=== PATIENT | female | born 1955 | race Caucasian/White ===

== ENCOUNTER 2016-09-27 09:53 | Emergency (ER) | payer OTHER ==
--- NOTE | 2016-09-27 10:27 | ERPHSYRPT ---
- History of Present Illness Time Seen by Provider: 09/27/16 10:10 Source: patient Exam Limitations: clinical condition Patient Subjective Stated Complaint: rt foot pain since saturday Triage Nursing Assessment: c/o constant rt foot pain since saturday. denies injury. pain to inner 'arch area' with localized sweling noted. pedal pulse present. ice with no relief Physician History: PATIENT COMPLAINS OF RIGHT MID FOOT PAIN WITH SWELLING ON INNER ASPECT OF FOOT FOR 4 DAYS. HAS MARKED PAIN UPON WEIGHT BEARING. DENIES TRAUMA OR INJURY. Method of Injury: unknown Occurred: days ago Severity of Pain-Max: moderate Severity of Pain-Current: moderate Lower Extremities Pain: foot: right Modifying Factors: Improves With: movement Associated Symptoms: unable to bear weight Allergies/Adverse Reactions: No Known Drug Allergies Allergy (Unverified 09/27/16 10:04) Home Medications: Amlodipine Besylate 5 mg [Norvasc 5 mg] 5 mg PO DAILY 09/27/16 [History] Aspirin 81 mg PO DAILY 09/27/16 [History] Benzonatate 200 mg PO TIDPRN 09/27/16 [History] Buspirone HCl [Buspar] 10 mg PO BID 09/27/16 [History] Duloxetine HCl 30 mg [Cymbalta 30 MG Capsule] 30 mg PO BID 09/27/16 [ History] Duloxetine HCl 30 mg [Cymbalta 30 MG Capsule] 30 mg PO DAILY 09/27/16 [ History] Ergocalciferol (Vitamin D2) [Vitamin D2] 50,000 unit PO Q7D 09/27/16 [History] Fluticasone Propionate [Flonase NASAL] 16 gm NS UD 09/27/16 [History] Hydrochlorothiazide 25 mg [hydroDIURIL 25 MG] 25 mg PO DAILY 09/27/16 [ History] Letrozole 2.5 mg PO DAILY 09/27/16 [History] Loratadine 10 mg [Claritin 10 mg] 10 mg PO DAILY 09/27/16 [History] Mometasone/Formoterol [Dulera 200 Mcg/5 Mcg Inhaler] 8.8 gm IH BID 09/27/16 [ History] Montelukast Sodium [Singulair] 10 mg PO DAILY 09/27/16 [History] Naproxen Sodium [Naproxen Sodium ER] 500 mg PO TIDPRN 09/27/16 [History] Willis-3 Fatty Acids/Fish Oil [Fish Oil 1,000 mg Capsule] 1,000 mg PO DAILY 09/27/16 [History] Pramipexole Di-HCl [Pramipexole ER] 0.75 mg PO HS 09/27/16 [History] Topiramate 50 mg PO BID 09/27/16 [History] Hx Tetanus, Diphtheria Vaccination/Date Given: Yes Hx Influenza Vaccination/Date Given: No Hx Pneumococcal Vaccination/Date Given: No Immunizations Up to Date: Yes - Review of Systems Constitutional: No Fever, No Chills Eyes: No Symptoms Ears, Nose, & Throat: No Symptoms Respiratory: No Symptoms, No Cough, No Dyspnea Cardiac: No Symptoms, No Chest Pain, No Edema, No Syncope Abdominal/Gastrointestinal: No Abdominal Pain, No Nausea, No Vomiting, No Diarrhea Genitourinary Symptoms: No Symptoms, No Dysuria Musculoskeletal: Injury, Joint Pain, Joint Swelling, No Back Pain, No Neck Pain Skin: No Rash Neurological: No Dizziness, No Focal Weakness, No Sensory Changes Psychological: No Symptoms Endocrine: No Symptoms All Other Systems: Reviewed and Negative - Past Medical History Pertinent Past Medical History: Yes Cardiac History: Arrhythmia Respiratory History: Asthma Female Reproductive Disorders: Breast Cancer Other Medical History: aorta deficiency - Past Surgical History Past Surgical History: Yes Female Surgical History: Tubal Ligation, Lumpectomy Other Surgical History: lymph nodes rt breast and rt lump. bilat carpal tunnel. rt foot bone spur - Social History Smoking Status: Never smoker Exposure to second hand smoke: No Drug Use: none Patient Lives Alone: No - Nursing Vital Signs Nursing Vital Signs: Initial Vital Signs Temperature 98.3 F Temperature Source Oral Pulse Rate 78 Respiratory Rate 18 Blood Pressure [Left Arm] 143/80 Pain Intensity 6 - Physical Exam General Appearance: alert Eyes, Ears, Nose, Throat Exam: moist mucous membranes Neck Exam: non-tender, supple Cardiovascular/Respiratory Exam: chest non-tender, normal breath sounds, regular rate/rhythm, no respiratory distress Gastrointestinal/Abdominal Exam: non-tender, guarding Back Exam: normal inspection, No vertebral tenderness Ankle Exam: bilateral ankle: non-tender, normal inspection Foot Exam: right foot: pain (TENDERNESS RIGHT MID FOOT WITH SWELLING PROXIMAL TO MID 1ST TO 2ND METATARSAL , PLANTAR TENDERNESS, NO CALCANEAL TENDERNESS, NO ECCHYMOSIS OR CREPITUS, PEDIS PULSE 2+), soft tissue tenderness, swelling Neuro/Tendon Exam: normal sensation, normal motor functions Mental Status Exam: alert, oriented x 3, cooperative Skin Exam: normal color, warm, dry SpO2 Interpretation: normal SpO2: 98 Oxygen Delivery: Room Air - Radiology Exams Right Foot X-ray Interpretation: Interpreted by me (SOFT TISSUE SWELLING, ACHILLES AND CALCANEAL SPURS) Ordered Tests: Active Orders 24 hr Category Date Time Status FOOT (MINIMUM 3 VIEWS) Stat Exams 09/27/16 10:15 Taken - Progress Progress: unchanged Progress Note: 09/27/16 10:43 PATIENT UNABLE TO USE CRUTCHES, PRESCRIPTION GIVEN FOR WALKER Counseled pt/family regarding: diagnosis, need for follow-up, rad results - Departure Time of Disposition: 10:55 Departure Disposition: Home Clinical Impression: RIGHT FOOT PAIN Condition: Stable Critical Care Time: No Additional Instructions: AMBULATE USING WALKER ASSISTANCE NONWEIGHT BEARING RIGHT FOOT FOR 1 WEEK. CONTINUE NAPROSYN FOR PAIN NEEDED. FOLLOWUP WITH YOUR FAMILY PHYSICIAN AND SHIP ERECTOR. PREDNISONE 20MG, 2 TABLETS DAILY FOR 5 DAYS. Prescriptions: Prednisone 20 mg [Deltasone 20 mg] 2 tablet PO DAILY #10 tablet
--- NOTE | 2016-09-27 10:48 | XRAY ---
Indication: Heel pain and swelling. No known injury. Comparison: None 3 nonweightbearing views of the right foot demonstrates small posterior/plantar heel spurs, smaller spurring of the distal tibia anteriorly, and focal soft tissue swelling lateral to the fifth MTP. No other bony, articular, or soft tissue abnormalities.
[2016-09-27 11:04] VITALS: BP 112/63; PULSE 66; O2SAT 96
== END 2016-09-27 11:05 | disposition home or self-care (01) ==
LOC: ED 09:53
DX: M79.671 Pain in right foot (principal)
CPT/HCPCS: 73630; 99283